=== PATIENT | male | born 1980 | race Caucasian/White ===

== ENCOUNTER 2017-09-30 08:59 | Emergency (ER) | payer OTHER ==
[~2017-09-30] VITALS: Ht 167.6 cm; Wt 86.0 kg
[2017-09-30 09:46] VITALS: BP 152/78
== END 2017-09-30 10:13 | disposition home or self-care (01) ==
LOC: EMS 09:01
DX: H60.91 Unspecified otitis externa, right ear (principal); F17.210 Nicotine dependence, cigarettes, uncomplicated
CPT/HCPCS: 99283; 99406